=== PATIENT | female | born 1985 ===

== ENCOUNTER → 2024-11-05 | Outpatient (CLI) | payer OTHER ==
--- NOTE | 2024-11-05 11:01 | US ---
EXAMINATION TYPE: US abdomen limited DATE OF EXAM: 11/05/2024 COMPARISON: NONE CLINICAL INDICATION: Female, 39 years old with history of R79.89 ABNORMAL FINDINGS OF BLOOD CHEMISTRY ; abn labs, no symptoms TECHNIQUE: Grayscale and color Doppler imaging of the right upper quadrant was performed. FINDINGS: EXAM MEASUREMENTS: Liver Length: 13.7 cm Gallbladder Wall: 0.2 cm CBD: 0.4 cm Right Kidney: 9.8 x 3.5 x 3.6 cm Pancreas: Most of the pancreas is visualized and shows no gross abnormality. Liver: wnl Gallbladder: wnl Evidence for sonographic Smith's sign: no CBD: wnl Right Kidney: wnl IMPRESSION: Unremarkable sonographic examination of the right upper quadrant. [facility], Workstation: [email or web address], 11/05/2024 10:59 AM
== END | disposition home or self-care (01) ==
LOC: RADUSWWP 09:05
PROVIDERS: ATTEND Family Medicine
DX: R79.89 Other specified abnormal findings of blood chemistry (principal)
CPT/HCPCS: 76705